=== PATIENT | male | born 1960 | race Hispanic/Latino ===

== ENCOUNTER 2020-04-30 16:34 | Inpatient (IN) | payer OTHER ==
[~2020-04-30] VITALS: Ht 180.3 cm; Wt 150.7 kg
[2020-04-30 17:16] LABS: APPEARANCE,URINE Clear (CLEAR); BILIRUBIN,URINE Negative (NEGATIVE); COLOR,URINE Yellow (YELLOW); GLUCOSE, URINE (UA) Negative (NEGATIVE); KETONES,URINE Negative (NEGATIVE); LEUKOCYTE ESTERASE ,URINE Trace (NEGATIVE); NITRATE,URINE Negative (NEGATIVE); OCCULT BLOOD,URINE Negative (NEGATIVE); PH,URINE 6.5 (5.0-8.0); PROTEIN,URINE POS 2+ mg/dL (NEGATIVE); UROBILINOGEN,URINE 0.2 mg/dL (0.2-1.0)
[2020-04-30 17:17] LABS: BASOPHILS % (AUTO) 0.6 % (0.0-5.0); EOSINOPHILS % (AUTO) 6.9 % (0.0-8.0); LYMPHOCYTES % (AUTO) 14.2 % (21.0-51.0); MEAN CORPUSCULAR HEMOGLOBIN 25.1 pg (27.0-33.0); MEAN CORPUSCULAR HGB CONC 31.4 g/dL (32.0-36.0); NEUTROPHILS % (AUTO) 69.3 % (40.0-77.0); PLATELET COUNT (AUTO) 336 K/uL (130-400); RED CELL DISTRIBUTION WIDTH 15.3 % (11.0-15.5); WHITE BLOOD COUNT (AUTO) 14.1 K/uL (4.8-10.8)
[2020-04-30 17:34] LABS: BACTERIA,URINE Few /HPF (None Seen); MUCUS,URINE Few LPF (None Seen); SQUAMOUS EPITHELIAL CELL,UR Few /HPF (0-2)
[2020-04-30 17:37] LABS: CREATININE 4.3 mg/dL (0.5-1.5); POTASSIUM 5.4 mmol/L (3.5-5.1)
[2020-04-30 17:38] LABS: INR 0.99 (0.85-1.15); PARTIAL THROMBOPLASTIN TIME 29.7 SEC (26.3-35.5); PROTHROMBIN TIME 10.7 SEC (9.6-11.6)
[2020-04-30 17:41] LABS: ALBUMIN 3.3 g/dL (3.5-5.0); BILIRUBIN,TOTAL 0.4 mg/dL (0.2-1.0); TOTAL PROTEIN, SERUM 8.3 g/dL (6.0-8.3)
[2020-04-30] MEDS ORDERED: ORPHENADRINE CITRATE 30 MG/ML ML ONE (18:02)
[2020-04-30] MEDS ORDERED: DEXAMETHASONE SOD PHOSPHATE 10MG/ML 1ML VIAL ONE (18:02)
[2020-04-30] MEDS ORDERED: GUAIFENESIN-DM 200/20 MG 10 ML PO PRN (19:45)
[2020-04-30] MEDS ORDERED: ZOLPIDEM TARTRATE 5 MG TAB PO PRN (19:45)
[2020-04-30] MEDS ORDERED: DiphenhydrAMINE HCL 50 MG/ML VIAL IV PRN (19:45)
[2020-04-30] MEDS ORDERED: MAG HYDROX/AL HYDROX/SIMETH 30 ML, LIDOCAINE HCL 2% VISCOUS 30 ML, DIPHENHYDRAMINE HCL ... PO PRN ×3 (19:45)
[2020-04-30] MEDS ORDERED: NITROGLYCERIN 0.4 MG SL TAB SL PRN (19:45)
[2020-04-30] MEDS ORDERED: ACETAMINOPHEN-CODEINE 300/30MG TAB PO PRN ×2 (19:45)
[2020-04-30] MEDS ORDERED: DIPHENHYDRAMINE HCL 25 MG CAPSULE PO PRN (19:45)
[2020-04-30] MEDS ORDERED: ONDANSETRON HCL 4 MG/2 ML VIAL IV PRN (19:45)
[2020-04-30] MEDS ORDERED: LACTULOSE 20 GM/30 ML UDCUP PO PRN (19:45)
[2020-04-30] MEDS ORDERED: BENZONATATE 100 MG CAPSULE PO PRN (19:45)
[2020-04-30] MEDS ORDERED: ACETAMINOPHEN 325 MG TAB PO PRN ×2 (19:45)
[2020-04-30] MEDS ORDERED: LIDOCAINE HCL 2% VISCOUS 30 ML, MAG HYDROX/AL HYDROX/SIMETH 30 ML, BELLADONNA-PHENOBARB... PO PRN ×3 (19:45)
[2020-04-30] MEDS ORDERED: MAG HYDROX/AL HYDROX/SIMETH ES 30 ML SUSP UDCUP PO PRN (19:45)
[2020-04-30] MEDS ORDERED: UNASYN 3GM+NS 100ML 3 GM/100 ML IV.KIT IV SCH (20:15)
[2020-04-30] MEDS ORDERED: OXYCODONE HCL 5 MG TAB PO PRN ×2 (20:30)
[2020-04-30] MEDS ORDERED: HEPARIN SODIUM 5000UNIT/ML 1ML VIAL ONE (20:30)
[2020-04-30] MEDS ORDERED: AMPICILLIN SODIUM/SULBACTAM NA 1.5GM VIAL ONE (20:34)
[2020-04-30] MEDS ORDERED: MAG HYDROX/AL HYDROX/SIMETH 60 ML, LIDOCAINE HCL 2% VISCOUS 60 ML, DIPHENHYDRAMINE HCL ... PO PRN ×3 (20:45)
[2020-04-30] MEDS ORDERED: COMPOUND PO MISCELLANEOUS 1 EACH MISC MISC PRN (21:00)
[2020-04-30] MEDS: UNASYN 3GM+NS 100ML 100 ML IV SCH (21:00)
[2020-04-30] MEDS: HEPARIN SODIUM 5000UNIT/ML 1ML VIAL SQ SCH (21:00)
[2020-04-30] MEDS: INSULIN LISPRO 100 UNIT/ML 3ML SQ SCH (21:00)
[2020-04-30 22:15] VITALS: BP 137/71
--- NOTE | 2020-04-30 22:30 | NUR ---
patient alert and oriented x 3. patient able to ambulate independently. i spoke to the patient about hemodialysis and his kidney failure and he claims that he will refuse dialysis even if he needs it to survive. patient on iv antibiotics and fluids. patient had a bowel movement this morning. i updated his home medications and pending reconciliation.
[2020-04-30] MEDS ORDERED: SIMV-43 PO (23:02)
[2020-04-30] MEDS ORDERED: SITA25TA5 PO (23:02)
[2020-04-30] MEDS ORDERED: FOLI1TAB85 PO (23:02)
[2020-04-30] MEDS ORDERED: LOSA100T58 PO (23:02)
[2020-04-30] MEDS ORDERED: DOXA8TAB81 PO (23:02)
[2020-04-30] MEDS ORDERED: TORS20TA4 PO (23:02)
[2020-04-30] MEDS ORDERED: INSU3INS5 SQ ×2 (23:02)
[2020-04-30] MEDS ORDERED: ASPI-1197 PO (23:02)
[2020-04-30] MEDS ORDERED: AMLO5TAB9 PO (23:02)
[2020-05-01 00:04] VITALS: BP 137/73
[2020-05-01] MEDS: UNASYN 3GM+NS 100ML 100 ML IV SCH ×4 (01:28→20:39)
[2020-05-01 03:45] LABS: BASOPHILS % (AUTO) 0.5 % (0.0-5.0); EOSINOPHILS % (AUTO) 7.5 % (0.0-8.0); HEMATOCRIT 35.6 % (42-54); LYMPHOCYTES % (AUTO) 15.1 % (21.0-51.0); MEAN CORPUSCULAR HEMOGLOBIN 25.3 pg (27.0-33.0); MEAN CORPUSCULAR HGB CONC 30.9 g/dL (32.0-36.0); MEAN CORPUSCULAR VOLUME 81.8 fL (79-99); MONOCYTES % (AUTO) 6.4 % (3.0-13.0); NEUTROPHILS % (AUTO) 69.1 % (40.0-77.0); PLATELET COUNT (AUTO) 302 K/uL (130-400); RED BLOOD CELL COUNT(AUTO) 4.35 MIL/uL (4.50-6.20); RED CELL DISTRIBUTION WIDTH 15.3 % (11.0-15.5); WHITE BLOOD COUNT (AUTO) 9.9 K/uL (4.8-10.8)
[2020-05-01 04:04] VITALS: BP 120/61
[2020-05-01 04:07] LABS: ALBUMIN 2.8 g/dL (3.5-5.0); BILIRUBIN,TOTAL 0.4 mg/dL (0.2-1.0); CREATININE 4.1 mg/dL (0.5-1.5); MAGNESIUM 2.3 mg/dL (1.80-2.40); PHOSPHORUS 4.8 mg/dL (2.5-4.9); POTASSIUM 5.9 mmol/L (3.5-5.1); TOTAL PROTEIN, SERUM 7.6 g/dL (6.0-8.3)
--- NOTE | 2020-05-01 05:40 | NUR ---
brian quiroz biometrician hospitalist for patient's potassium of 5.9. pending call back.
[2020-05-01] MEDS: INSULIN LISPRO 100 UNIT/ML 3ML SQ SCH ×4 (05:52→20:34)
--- NOTE | 2020-05-01 06:21 | NUR ---
texted doctor ever about patient's potassium of 5.9. pending reply.
[2020-05-01] MEDS: SODIUM CHLORIDE 0.9% 1000ML 1,000 ML IV SCH ×2 (06:39→08:00)
--- NOTE | 2020-05-01 06:43 | NUR ---
the ER nurse scanned and ran a bag of NS @150 ml when she transferred the patient to tx. I scanned and administered the second bag of Normal saline right now. after this bag, NS should be stopped as ordered by MD/
[2020-05-01] MEDS ORDERED: CALCIUM GLUCONATE 1 GM/10 ML VIAL IV SCH (07:15)
[2020-05-01] MEDS ORDERED: PHARMACY COMMUNICATION MISC SCH (07:15)
[2020-05-01] MEDS ORDERED: INSULIN HUMULIN R 100 UNIT/ML 3ML SQ SCH (07:15)
[2020-05-01] MEDS ORDERED: DEXTROSE 50%-WATER 50 ML DISP.SYRIN IV SCH (07:15)
[2020-05-01] MEDS ORDERED: SODIUM POLYSTYRENE SULFONATE 15 GM/60 ML ML RC SCH (07:15)
[2020-05-01] MEDS ORDERED: DEXTROSE 50%-WATER 50 ML DISP.SYRIN IV ONE (07:33)
[2020-05-01] MEDS ORDERED: SODIUM POLYSTYRENE SULFONATE 15 GM/60 ML ML ONE (07:33)
[2020-05-01] MEDS ORDERED: INSULIN HUMULIN R 100 UNIT/ML 3ML ONE (07:34)
--- NOTE | 2020-05-01 07:45 | NUR ---
GAVE 10 UNITS OF REGULAR INSULIN, GAVE 50 DEXTROSE AMPULE, GAVE 30 GRAMS OF KAYAXELATE (2 CUPS) WITH APPLE JUICE. PENDING TO GIVE CALCIUM GLUCONATE. PHARMACY MIXING IT.
[2020-05-01 08:00] VITALS: BP 158/81
[2020-05-01] MEDS ORDERED: CALCIUM GLUCONATE 1 GM in SODIUM CHLORIDE 0.9% 50 ML IV SCH ×2 (08:00→13:00)
[2020-05-01] MEDS ORDERED: GLUCAGON 1MG KIT 1 MG ML IM PRN (11:00)
[2020-05-01] MEDS ORDERED: DEXTROSE 50%-WATER 50 ML DISP.SYRIN IV PRN (11:00)
[2020-05-01] MEDS: FAMOTIDINE/PF 20 MG/2 ML VIAL IV SCH (11:27)
[2020-05-01] MEDS: ASPIRIN 81MG TAB.CHEW PO SCH (11:27)
[2020-05-01] MEDS: LINAGLIPTIN 5 MG TABLET PO SCH (11:28)
[2020-05-01] MEDS: AMLODIPINE BESYLATE 5 MG TAB PO SCH (11:28)
[2020-05-01] MEDS: HEPARIN SODIUM 5000UNIT/ML 1ML VIAL SQ SCH ×3 (11:39→20:42)
[2020-05-01 12:00] VITALS: BP 153/90
[2020-05-01 12:58] LABS: PROTEIN,URINE RANDOM 90.1 mg/dL (0-11.9)
[2020-05-01 13:14] LABS: CREATININE 3.9 mg/dL (0.5-1.5); POTASSIUM 5.1 mmol/L (3.5-5.1)
[2020-05-01 16:00] VITALS: BP 155/85
--- NOTE | 2020-05-01 16:35 | NUR ---
CM NOTE/IA UNSUCCESSFUL CALL ATTEMPTED AT 1427 AND 1635, NO ANSWER, PENDING IA. CM TO FOLLOW UP. Addendum: 05/02/20 at 1013 by ROSA PAN RN CM Amended: Links added.
[2020-05-01] MEDS: INSULIN HUMULIN 70/30 100 UNIT/ML 3ML SQ SCH (17:51)
[2020-05-01 20:08] VITALS: BP 142/66
[2020-05-01] MEDS: SIMVASTATIN 20 MG TABLET PO SCH (20:39)
[2020-05-01] MEDS: DOXAZOSIN MESYLATE 2 MG TABLET PO SCH (20:39)
[2020-05-02 00:12] VITALS: BP 144/71
[2020-05-02] MEDS: UNASYN 3GM+NS 100ML 100 ML IV SCH ×4 (03:17→21:01)
[2020-05-02 04:12] VITALS: BP 138/74
[2020-05-02 05:20] LABS: BASOPHILS % (AUTO) 0.7 % (0.0-5.0); EOSINOPHILS % (AUTO) 7.6 % (0.0-8.0); HEMATOCRIT 32.8 % (42-54); LYMPHOCYTES % (AUTO) 11.8 % (21.0-51.0); MEAN CORPUSCULAR HEMOGLOBIN 25.4 pg (27.0-33.0); MEAN CORPUSCULAR HGB CONC 31.1 g/dL (32.0-36.0); MEAN CORPUSCULAR VOLUME 81.8 fL (79-99); MONOCYTES % (AUTO) 6.7 % (3.0-13.0); NEUTROPHILS % (AUTO) 72.4 % (40.0-77.0); PLATELET COUNT (AUTO) 288 K/uL (130-400); RED BLOOD CELL COUNT(AUTO) 4.01 MIL/uL (4.50-6.20); RED CELL DISTRIBUTION WIDTH 15.4 % (11.0-15.5); WHITE BLOOD COUNT (AUTO) 10.3 K/uL (4.8-10.8)
[2020-05-02 05:47] LABS: ALBUMIN 2.7 g/dL (3.5-5.0); BILIRUBIN,TOTAL 0.3 mg/dL (0.2-1.0); CREATININE 3.8 mg/dL (0.5-1.5); PHOSPHORUS 4.6 mg/dL (2.5-4.9); POTASSIUM 5.2 mmol/L (3.5-5.1)
[2020-05-02] MEDS: INSULIN LISPRO 100 UNIT/ML 3ML SQ SCH ×4 (05:54→20:47)
[2020-05-02] MEDS: INSULIN HUMULIN 70/30 100 UNIT/ML 3ML SQ SCH ×2 (05:55→17:29)
[2020-05-02 08:13] VITALS: BP 136/78
[2020-05-02] MEDS: LINAGLIPTIN 5 MG TABLET PO SCH (08:50)
[2020-05-02] MEDS: FOLIC ACID/VITAMIN B COMP W-C 1 CAP TAB PO SCH (08:50)
[2020-05-02] MEDS: ASPIRIN 81MG TAB.CHEW PO SCH (08:50)
[2020-05-02] MEDS: FAMOTIDINE/PF 20 MG/2 ML VIAL IV SCH (08:51)
[2020-05-02] MEDS: AMLODIPINE BESYLATE 5 MG TAB PO SCH (09:01)
[2020-05-02] MEDS: HEPARIN SODIUM 5000UNIT/ML 1ML VIAL SQ SCH ×3 (09:01→20:32)
[2020-05-02 10:20] LABS: APPEARANCE,URINE Clear (CLEAR); BILIRUBIN,URINE Negative (NEGATIVE); COLOR,URINE Yellow (YELLOW); GLUCOSE, URINE (UA) Negative (NEGATIVE); KETONES,URINE Negative (NEGATIVE); LEUKOCYTE ESTERASE ,URINE Negative (NEGATIVE); NITRATE,URINE Negative (NEGATIVE); OCCULT BLOOD,URINE Negative (NEGATIVE); PH,URINE 6.5 (5.0-8.0); PROTEIN,URINE POS 2+ mg/dL (NEGATIVE); UROBILINOGEN,URINE 0.2 mg/dL (0.2-1.0)
[2020-05-02 10:37] LABS: BACTERIA,URINE Rare /HPF (None Seen); RBC,URINE 0-1 /HPF (0-1); SQUAMOUS EPITHELIAL CELL,UR Rare /HPF (0-2); WBC,URINE 0-1 /HPF (0-1)
[2020-05-02 12:00] VITALS: BP 164/85
[2020-05-02 16:00] VITALS: BP 166/85
[2020-05-02] MEDS ORDERED: SODIUM POLYSTYRENE SULFONATE 15 GM/60 ML ML PO SCH (16:15)
--- NOTE | 2020-05-02 16:15 | NUR ---
CM NOTE/IA UNSUCCESSFUL ATTEMPTED TO CALL, NO ANSWER, CM TO FOLLOW UP. Addendum: 05/02/20 at 1616 by ROSA PAN RN CM Amended: Links added.
[2020-05-02 20:00] VITALS: BP 119/68
[2020-05-02] MEDS: SIMVASTATIN 20 MG TABLET PO SCH (21:02)
[2020-05-02] MEDS: DOXAZOSIN MESYLATE 2 MG TABLET PO SCH (21:02)
[2020-05-03] VITALS (7 sets, daily range): BP systolic 133–160; BP diastolic 63–90
[2020-05-03] MEDS: UNASYN 3GM+NS 100ML 100 ML IV SCH ×4 (02:51→20:54)
[2020-05-03 06:44] LABS: BASOPHILS % (AUTO) 0.5 % (0.0-5.0); EOSINOPHILS % (AUTO) 6.1 % (0.0-8.0); HEMATOCRIT 32.1 % (42-54); LYMPHOCYTES % (AUTO) 11.3 % (21.0-51.0); MEAN CORPUSCULAR HEMOGLOBIN 25.5 pg (27.0-33.0); MEAN CORPUSCULAR HGB CONC 31.2 g/dL (32.0-36.0); MEAN CORPUSCULAR VOLUME 81.9 fL (79-99); MONOCYTES % (AUTO) 7.5 % (3.0-13.0); NEUTROPHILS % (AUTO) 74.1 % (40.0-77.0); PLATELET COUNT (AUTO) 246 K/uL (130-400); RED BLOOD CELL COUNT(AUTO) 3.92 MIL/uL (4.50-6.20); RED CELL DISTRIBUTION WIDTH 15.2 % (11.0-15.5); WHITE BLOOD COUNT (AUTO) 11.2 K/uL (4.8-10.8)
[2020-05-03 06:58] LABS: ALBUMIN 2.7 g/dL (3.5-5.0); BILIRUBIN,TOTAL 0.5 mg/dL (0.2-1.0); CREATININE 3.8 mg/dL (0.5-1.5); MAGNESIUM 2.1 mg/dL (1.80-2.40); PHOSPHORUS 4.3 mg/dL (2.5-4.9); POTASSIUM 4.9 mmol/L (3.5-5.1)
[2020-05-03] MEDS: INSULIN LISPRO 100 UNIT/ML 3ML SQ SCH ×4 (07:09→20:57)
[2020-05-03] MEDS: INSULIN HUMULIN 70/30 100 UNIT/ML 3ML SQ SCH ×2 (07:30→16:38)
[2020-05-03] MEDS: LINAGLIPTIN 5 MG TABLET PO SCH (08:08)
[2020-05-03] MEDS: ASPIRIN 81MG TAB.CHEW PO SCH (08:08)
[2020-05-03] MEDS: FAMOTIDINE/PF 20 MG/2 ML VIAL IV SCH (08:08)
[2020-05-03] MEDS: FOLIC ACID/VITAMIN B COMP W-C 1 CAP TAB PO SCH (08:09)
[2020-05-03] MEDS: AMLODIPINE BESYLATE 5 MG TAB PO SCH (08:09)
[2020-05-03] MEDS: HYDROMORPHONE HCL 2 MG TAB PO PRN ×3 (08:09→21:13)
[2020-05-03] MEDS: HEPARIN SODIUM 5000UNIT/ML 1ML VIAL SQ SCH ×3 (08:12→20:58)
[2020-05-03 08:46] LABS: HEMOGLOBIN A1C 7.6 % (4.0-6.0)
[2020-05-03] MEDS: PREDNISONE 20 MG TABLET PO SCH (13:14)
[2020-05-03] MEDS ORDERED: COLCHICINE 0.6 MG TABLET PO SCH (14:00)
--- NOTE | 2020-05-03 19:48 | NUR ---
INITIAL SW spoke with patient. He states he lives with his , Sheyla Recinos. No home services. DME: glucometer (uses insulin). Independent with ADL's and drives. Patient works concrete handler. PCP is Dr. Lora Levine. Pharmacy is [facility] located in [place]. DCP is home. Addendum: 05/03/20 at 1949 by AJ JETER SS Amended: Links added.
[2020-05-03] MEDS: DOXAZOSIN MESYLATE 2 MG TABLET PO SCH (20:52)
[2020-05-03] MEDS: SIMVASTATIN 20 MG TABLET PO SCH (20:52)
--- NOTE | 2020-05-03 20:55 | NUR ---
MEDS SHIFT ASSESSMENT DONE, PLEASE REFER TO CHART. PT COMPLAINTS OF ARTHRITIC PAINS. DUE MEDS ADMINISTERED, DILAUDID PO GIVEN FOR PAINS. KEPT RESTED AND COMFORTABLE IN BED. WILL RE-ASSESS PT. CALL LIGHT WITHIN REACH. Addendum: 05/03/20 at 2311 by JOSE D GONZALES RN RN Amended: Links added.
--- NOTE | 2020-05-04 01:56 | NUR ---
ROUNDS PT RESTING WELL, NO DISTRESS NOTED. KEPT COMFORTABLE IN BED. CALL LIGHT WITHIN REACH. WILL MONITOR PT.
[2020-05-04] MEDS: UNASYN 3GM+NS 100ML 100 ML IV SCH ×4 (03:03→20:18)
[2020-05-04 03:51] VITALS: BP 143/72
--- NOTE | 2020-05-04 05:41 | NUR ---
ROUNDS PT RESTING WELL, NO DISTRESS NOTED. NO CONCERNS VERBALIZED. FOR MORE CARE.
[2020-05-04] MEDS: INSULIN LISPRO 100 UNIT/ML 3ML SQ SCH ×4 (06:15→20:19)
[2020-05-04] MEDS: INSULIN HUMULIN 70/30 100 UNIT/ML 3ML SQ SCH ×2 (06:55→17:08)
[2020-05-04 08:10] VITALS: BP 147/72
[2020-05-04] MEDS: FAMOTIDINE/PF 20 MG/2 ML VIAL IV SCH (09:00)
[2020-05-04] MEDS: LINAGLIPTIN 5 MG TABLET PO SCH (09:00)
[2020-05-04] MEDS: AMLODIPINE BESYLATE 5 MG TAB PO SCH (09:00)
[2020-05-04] MEDS: FOLIC ACID/VITAMIN B COMP W-C 1 CAP TAB PO SCH (09:00)
[2020-05-04] MEDS: ASPIRIN 81MG TAB.CHEW PO SCH (09:01)
[2020-05-04] MEDS: HEPARIN SODIUM 5000UNIT/ML 1ML VIAL SQ SCH ×3 (09:05→20:20)
[2020-05-04 11:47] VITALS: BP 106/76
[2020-05-04] MEDS ORDERED: PREDNISONE 20 MG TABLET PO SCH (12:45)
[2020-05-04] MEDS: PREDNISONE 20 MG TABLET PO SCH (12:59)
[2020-05-04 16:56] VITALS: BP 160/81
[2020-05-04 20:00] VITALS: BP 162/80
[2020-05-04] MEDS: SIMVASTATIN 20 MG TABLET PO SCH (20:18)
[2020-05-04] MEDS: DOXAZOSIN MESYLATE 2 MG TABLET PO SCH (20:18)
--- NOTE | 2020-05-04 20:20 | NUR ---
MEDS SHIFT ASSESSMENT DONE, PLEASE REFER TO CHART. DUE MEDS ADMINISTERED, PT TOLERATED WELL. KEPT RESTED AND COMFORTABLE. CALL LIGHT WITHIN REACH. WILL MONITOR PT. Addendum: 05/05/20 at 0320 by JOSE D GONZALES RN RN Amended: Links added.
[2020-05-05] VITALS: BP 163/88
--- NOTE | 2020-05-05 00:15 | NUR ---
PAGED PT'S BP IS PERSISTENTLY HIGH BUT IS ASYMPTOMATIC. KADEEM CASTILLO NP [employer]PITAL[employer], VIA ANSWERING SERVICE. AWAITING CALL BACK.
[2020-05-05] MEDS ORDERED: HYDRALAZINE HCL 20 MG/ML VIAL IV PRN (00:45)
--- NOTE | 2020-05-05 00:45 | NUR ---
WYATT CASTILLO NP, ON THE FLOOR AND REFERRED PT'S HIGH BP. NEW MED ORDER GIVEN, PLEASE REFER TO CPOE. WILL MEDICATE PT.
[2020-05-05] MEDS ORDERED: HYDRALAZINE HCL 20 MG/ML VIAL ONE (01:14)
[2020-05-05] MEDS: UNASYN 3GM+NS 100ML 100 ML IV SCH ×4 (03:01→21:23)
[2020-05-05 03:43] VITALS: BP 137/67
--- NOTE | 2020-05-05 05:51 | NUR ---
ROUNDS PT ALREADY AWAKE. DENIES ANY CONCERNS AT THIS TIME. NO DISTRESS NOTED. KEPT COMFORTABLE. FOR MORE CARE.
[2020-05-05] MEDS: INSULIN LISPRO 100 UNIT/ML 3ML SQ SCH ×3 (05:52→20:16)
[2020-05-05 06:26] LABS: BASOPHILS % (AUTO) 0.3 % (0.0-5.0); EOSINOPHILS % (AUTO) 0.1 % (0.0-8.0); HEMATOCRIT 31.6 % (42-54); LYMPHOCYTES % (AUTO) 7.2 % (21.0-51.0); MEAN CORPUSCULAR HEMOGLOBIN 25.4 pg (27.0-33.0); MEAN CORPUSCULAR HGB CONC 31.6 g/dL (32.0-36.0); MEAN CORPUSCULAR VOLUME 80.2 fL (79-99); MONOCYTES % (AUTO) 7.3 % (3.0-13.0); NEUTROPHILS % (AUTO) 84.4 % (40.0-77.0); PLATELET COUNT (AUTO) 231 K/uL (130-400); RED BLOOD CELL COUNT(AUTO) 3.94 MIL/uL (4.50-6.20); WHITE BLOOD COUNT (AUTO) 12.3 K/uL (4.8-10.8)
[2020-05-05 06:34] LABS: POTASSIUM 5.4 mmol/L (3.5-5.1)
[2020-05-05] MEDS: INSULIN HUMULIN 70/30 100 UNIT/ML 3ML SQ SCH ×2 (06:50→08:50)
[2020-05-05 08:00] VITALS: BP 169/88
[2020-05-05] MEDS ORDERED: SODIUM POLYSTYRENE SULFONATE 15 GM/60 ML ML PO SCH (08:30)
[2020-05-05] MEDS ORDERED: CALCIUM GLUCONATE 1 GM/10 ML VIAL IV SCH (08:30)
[2020-05-05] MEDS ORDERED: CALCIUM GLUCONATE 1 GM in SODIUM CHLORIDE 0.9% 100 ML IV SCH (08:45)
[2020-05-05] MEDS: HEPARIN SODIUM 5000UNIT/ML 1ML VIAL SQ SCH ×3 (08:49→21:25)
[2020-05-05] MEDS: LOSARTAN 100 MG TABLET PO SCH (08:50)
[2020-05-05] MEDS: LINAGLIPTIN 5 MG TABLET PO SCH (08:50)
[2020-05-05] MEDS: FAMOTIDINE/PF 20 MG/2 ML VIAL IV SCH (08:51)
[2020-05-05] MEDS: ASPIRIN 81MG TAB.CHEW PO SCH (08:51)
[2020-05-05] MEDS: FOLIC ACID/VITAMIN B COMP W-C 1 CAP TAB PO SCH (08:51)
[2020-05-05] MEDS: AMLODIPINE BESYLATE 5 MG TAB PO SCH (09:08)
[2020-05-05 09:17] LABS: MEAN CORPUSCULAR HEMOGLOBIN 25.6 pg (27.0-33.0); MEAN CORPUSCULAR HGB CONC 31.9 g/dL (32.0-36.0); MEAN CORPUSCULAR VOLUME 80.2 fL (79-99); RED BLOOD CELL COUNT(AUTO) 3.99 MIL/uL (4.50-6.20); WHITE BLOOD COUNT (AUTO) 12.7 K/uL (4.8-10.8)
[2020-05-05 09:31] LABS: POTASSIUM 4.4 mmol/L (3.5-5.1)
[2020-05-05] MEDS ORDERED: PREDNISONE 20 MG TABLET PO SCH (10:15)
[2020-05-05 11:00] VITALS: BP 148/73
[2020-05-05] MEDS: PREDNISONE 20 MG TABLET PO SCH (15:44)
[2020-05-05 16:00] VITALS: BP 152/80
[2020-05-05 20:24] VITALS: BP 173/92
[2020-05-05] MEDS: SIMVASTATIN 20 MG TABLET PO SCH (21:24)
[2020-05-05] MEDS: DOXAZOSIN MESYLATE 2 MG TABLET PO SCH (21:24)
[2020-05-06 00:01] VITALS: BP 156/85
[2020-05-06] MEDS: UNASYN 3GM+NS 100ML 100 ML IV SCH ×2 (03:50→12:49)
[2020-05-06 04:11] VITALS: BP 153/79
[2020-05-06 04:42] LABS: HEMATOCRIT 31.6 % (42-54); MEAN CORPUSCULAR HEMOGLOBIN 25.4 pg (27.0-33.0); MEAN CORPUSCULAR VOLUME 79.6 fL (79-99); RED BLOOD CELL COUNT(AUTO) 3.97 MIL/uL (4.50-6.20); RED CELL DISTRIBUTION WIDTH 15.1 % (11.0-15.5); WHITE BLOOD COUNT (AUTO) 8.9 K/uL (4.8-10.8)
[2020-05-06 04:50] LABS: CREATININE 3.7 mg/dL (0.5-1.5); POTASSIUM 4.4 mmol/L (3.5-5.1)
[2020-05-06] MEDS: INSULIN LISPRO 100 UNIT/ML 3ML SQ SCH ×2 (06:47→11:30)
[2020-05-06 08:00] VITALS: BP 138/83
--- NOTE | 2020-05-06 08:00 | NUR ---
AM SHIFT ASSESSMENT.VOICES NO C/O
[2020-05-06] MEDS ORDERED: LINA5TAB PO (08:45)
[2020-05-06] MEDS ORDERED: INSU3INS5 SQ ×2 (08:45)
[2020-05-06 12:00] VITALS: BP 151/79
[2020-05-06] MEDS: FOLIC ACID/VITAMIN B COMP W-C 1 CAP TAB PO SCH (12:46)
[2020-05-06] MEDS: LOSARTAN 100 MG TABLET PO SCH (12:46)
[2020-05-06] MEDS: LINAGLIPTIN 5 MG TABLET PO SCH (12:47)
[2020-05-06] MEDS: ASPIRIN 81MG TAB.CHEW PO SCH (12:49)
[2020-05-06] MEDS: FAMOTIDINE/PF 20 MG/2 ML VIAL IV SCH (12:49)
[2020-05-06] MEDS: HEPARIN SODIUM 5000UNIT/ML 1ML VIAL SQ SCH (13:09)
--- NOTE | 2020-05-06 18:45 | NUR ---
DISCHARGED NOW USING TEACH BACK SALINE LOCK AND HEART MONITOR REMOVED. VERBALIZED UNDERSTANDING OF ALL INST. GIVEN.INSULIN DOSES CHANGED AND STATES HE UNDERSTANDS. WILL FOLLOW UP WITH PRIMARY CARE DR. ALSO WITH DR. DE LA FUENTE.
== END 2020-05-06 18:45 | disposition home or self-care (01) | DRG 690 ==
LOC: EDH 16:34 → EDHIP 19:43 → 3DH 22:04
PROVIDERS: ADMIT Internal Medicine; ATTEND Internal Medicine
DX: N30.90 Cystitis, unspecified without hematuria (principal); N17.9 Acute kidney failure, unspecified; N18.9 Chronic kidney disease, unspecified; K42.9 Umbilical hernia without obstruction or gangrene; D64.9 Anemia, unspecified; E11.22 Type 2 diabetes mellitus with diabetic chronic kidney disease; E11.42 Type 2 diabetes mellitus with diabetic polyneuropathy; E11.51 Type 2 diabetes mellitus with diabetic peripheral angiopathy without gangrene; E87.5 Hyperkalemia; I12.9 Hypertensive chronic kidney disease with stage 1 through stage 4 chronic kidney disease, or unspecified chronic kidney disease; M10.9 Gout, unspecified; Z03.818 Encounter for observation for suspected exposure to other biological agents ruled out
CPT/HCPCS: 36415; 71045; 76770; 80048; 80053; 81001; 82550; 82570; 82948; 83036; 83605; 83735; 84100; 84132; 84156; 84484; 84550; 85025; 85027; 85610; 85730; 87040; 87088; 87426; 93005; 93306; 93356; 97039; 99291; G0378; J0295; J0360; J0610; J1100; J1644; J1815; J3490; J7030; J7070; U0003

== ENCOUNTER 2020-06-14 22:33 | Emergency (ER) | payer OTHER ==
[~2020-06-14 22:33] MED LIST: AMLO-257 PO; ASPI-1197 PO; DOXA8TAB81 PO; FOLI1TAB85 PO; INSU3INS5 SQ; LINA5TAB PO; LOSA100T58 PO; SIMV-43 PO; TORS20TA4 PO
[2020-06-14 23:40] LABS: BASOPHILS % (AUTO) 0.3 % (0.0-5.0); EOSINOPHILS % (AUTO) 1.8 % (0.0-8.0); HEMATOCRIT 33.8 % (42-54); LYMPHOCYTES % (AUTO) 4.9 % (21.0-51.0); MEAN CORPUSCULAR HEMOGLOBIN 26.1 pg (27.0-33.0); MEAN CORPUSCULAR HGB CONC 31.4 g/dL (32.0-36.0); MEAN CORPUSCULAR VOLUME 83.3 fL (79-99); MONOCYTES % (AUTO) 5.8 % (3.0-13.0); NEUTROPHILS % (AUTO) 86.7 % (40.0-77.0); PLATELET COUNT (AUTO) 180 K/uL (130-400); RED BLOOD CELL COUNT(AUTO) 4.06 MIL/uL (4.50-6.20); RED CELL DISTRIBUTION WIDTH 16.1 % (11.0-15.5); WHITE BLOOD COUNT (AUTO) 15.3 K/uL (4.8-10.8)
[2020-06-14 23:51] LABS: CREATININE 4.2 mg/dL (0.5-1.5); POTASSIUM 4.8 mmol/L (3.5-5.1)
[2020-06-15] MEDS ORDERED: ONDANSETRON HCL 4 MG/2 ML VIAL ONE (00:05)
[2020-06-15] MEDS ORDERED: COLCHICINE 0.6 MG TABLET ONE (00:06)
[2020-06-15] MEDS ORDERED: MORPHINE SULFATE 4 MG/1ML SYG ONE (00:06)
[2020-06-15] MEDS ORDERED: PREDNISONE 20 MG TABLET ONE (00:27)
== END 2020-06-15 00:43 | disposition home or self-care (01) ==
LOC: EDH 22:33
DX: M10.9 Gout, unspecified (principal); I12.9 Hypertensive chronic kidney disease with stage 1 through stage 4 chronic kidney disease, or unspecified chronic kidney disease; E11.22 Type 2 diabetes mellitus with diabetic chronic kidney disease; N18.9 Chronic kidney disease, unspecified; Z91.018 Allergy to other foods; Z88.6 Allergy status to analgesic agent; Z79.899 Other long term (current) drug therapy
CPT/HCPCS: 36415; 80048; 85025; 96374; 96375; 99284; J2270; J2405

== ENCOUNTER 2021-06-19 10:48 | Inpatient (IN) | payer OTHER ==
[~2021-06-19] VITALS: Ht 180.3 cm; Wt 145.2 kg
[2021-06-19 11:38] LABS: ABG BASE EXCESS -2.3 mmol/L (-2.0-3.0); ABG OXYGEN SATURATION 86.6 % (95.0-99.0); ABG PCO2 59 mmHg (35-48)
[2021-06-19 11:43] LABS: CREATININE 4.5 mg/dL (0.5-1.5); POTASSIUM 5.5 mmol/L (3.5-5.1)
[2021-06-19 11:45] LABS: BASOPHILS % (AUTO) 0.5 % (0.0-5.0); EOSINOPHILS % (AUTO) 7.3 % (0.0-8.0); LYMPHOCYTES % (AUTO) 9.5 % (21.0-51.0); MEAN CORPUSCULAR HEMOGLOBIN 26.2 pg (27.0-33.0); MEAN CORPUSCULAR VOLUME 87.4 fL (79-99); MONOCYTES % (AUTO) 5.7 % (3.0-13.0); NEUTROPHILS % (AUTO) 76.7 % (40.0-77.0); PLATELET COUNT (AUTO) 211 K/uL (130-400); RED BLOOD CELL COUNT(AUTO) 4.12 MIL/uL (4.50-6.20); RED CELL DISTRIBUTION WIDTH 15.1 % (11.0-15.5); WHITE BLOOD COUNT (AUTO) 10.3 K/uL (4.8-10.8)
[2021-06-19 11:48] LABS: ALBUMIN 3.1 g/dL (3.5-5.0); BILIRUBIN,TOTAL 0.5 mg/dL (0.2-1.0); TOTAL PROTEIN, SERUM 7.4 g/dL (6.0-8.3)
[2021-06-19 12:17] LABS: B-TYPE NATRIURETIC PEPTIDE 210 pg/mL (0-100)
[2021-06-19] MEDS ORDERED: BUMETANIDE IV SCH (15:00)
[2021-06-19] MEDS ORDERED: VANCOMYCIN PROTOCOL PER PHARMACY IV PRN (15:00)
[2021-06-19 15:58] LABS: RETICULOCYTE % (AUTO) 2.27 % (0.42-2.23)
[2021-06-19] MEDS ORDERED: VANCOMYCIN 2GM/500ML NS IV ONE ×2 (16:00)
[2021-06-19] MEDS: CEFEPIME HCL 1 GM VIAL IVP SCH (16:15)
[2021-06-19 16:19] LABS: % IRON SATURATION 9.1 % (30-44)
[2021-06-19 16:38] LABS: THYROID STIMULATING HORMONE 2.44 uIU/mL (0.36-3.74)
[2021-06-19 16:53] VITALS: BP 116/60
[2021-06-19] MEDS ORDERED: ALLO100T PO (17:59)
[2021-06-19] MEDS ORDERED: OMEP20TA25 PO (17:59)
[2021-06-19] MEDS ORDERED: GABA-529 PO (17:59)
[2021-06-19] MEDS ORDERED: METO200T49 PO (17:59)
[2021-06-19] MEDS: SODIUM CHLORIDE 3% FOR INHALATION 4 ML/AMP VIAL.NEB IH SCH ×2 (18:59→23:17)
[2021-06-19 19:42] VITALS: BP 149/79
[2021-06-19] MEDS: FAMOTIDINE 20MG VIAL IV SCH (21:45)
[2021-06-19 23:58] VITALS: BP 143/75
[2021-06-20] MEDS ORDERED: FUROSEMIDE 100MG VIAL ONE (02:37)
[2021-06-20 04:20] VITALS: BP 134/71
[2021-06-20 05:20] LABS: BASOPHILS % (AUTO) 0.6 % (0.0-5.0); HEMATOCRIT 37.7 % (42-54); LYMPHOCYTES % (AUTO) 8.2 % (21.0-51.0); MEAN CORPUSCULAR HGB CONC 29.2 g/dL (32.0-36.0); MEAN CORPUSCULAR VOLUME 89.1 fL (79-99); MONOCYTES % (AUTO) 5.7 % (3.0-13.0); NEUTROPHILS % (AUTO) 78.1 % (40.0-77.0); PLATELET COUNT (AUTO) 201 K/uL (130-400); RED BLOOD CELL COUNT(AUTO) 4.23 MIL/uL (4.50-6.20); RED CELL DISTRIBUTION WIDTH 15.2 % (11.0-15.5); WHITE BLOOD COUNT (AUTO) 10.2 K/uL (4.8-10.8)
[2021-06-20 05:42] LABS: CREATININE 4.2 mg/dL (0.5-1.5); MAGNESIUM 2.6 mg/dL (1.80-2.40); PHOSPHORUS 5.7 mg/dL (2.5-4.9); POTASSIUM 5.5 mmol/L (3.5-5.1); URIC ACID 10.3 mg/dL (2.6-7.2)
[2021-06-20] MEDS: SODIUM CHLORIDE 3% FOR INHALATION 4 ML/AMP VIAL.NEB IH SCH ×4 (06:14→23:47)
[2021-06-20 08:00] VITALS: BP 151/79
[2021-06-20] MEDS: Vitamin B Complex/Vit C/Folic Acid PO SCH (08:54)
[2021-06-20] MEDS: ENOXAPARIN SODIUM 30 MG/0.3 ML SQ SCH (08:54)
[2021-06-20 11:51] VITALS: BP 138/66
[2021-06-20] MEDS: FUROSEMIDE 100MG VIAL 100 MG in 0.9%NACL 100ML 100 ML IV SCH ×2 (13:03→21:51)
[2021-06-20] MEDS: CEFEPIME HCL 1 GM VIAL IVP SCH (15:47)
[2021-06-20 16:00] VITALS: BP 142/49
[2021-06-20] MEDS: FAMOTIDINE 20MG VIAL IV SCH (19:19)
[2021-06-20 19:42] VITALS: BP 168/81
[2021-06-20] MEDS ORDERED: DEXTROSE 50%-WATER 50 ML DISP.SYRIN IV PRN (22:00)
[2021-06-20] MEDS ORDERED: GLUCAGON 1MG KIT 1 MG ML IM PRN (22:00)
[2021-06-20] MEDS: INSULIN HUMULIN R 100 UNIT/ML 3ML SQ SCH (22:08)
[2021-06-20 23:55] VITALS: BP 155/76
[2021-06-21 03:29] VITALS: BP 165/93
[2021-06-21] MEDS: INSULIN HUMULIN R 100 UNIT/ML 3ML SQ SCH ×4 (05:30→21:17)
[2021-06-21 05:54] LABS: BASOPHILS % (AUTO) 0.5 % (0.0-5.0); EOSINOPHILS % (AUTO) 7.4 % (0.0-8.0); LYMPHOCYTES % (AUTO) 12.7 % (21.0-51.0); MEAN CORPUSCULAR HEMOGLOBIN 25.5 pg (27.0-33.0); MEAN CORPUSCULAR HGB CONC 29.4 g/dL (32.0-36.0); MEAN CORPUSCULAR VOLUME 86.6 fL (79-99); MONOCYTES % (AUTO) 7.7 % (3.0-13.0); NEUTROPHILS % (AUTO) 71.3 % (40.0-77.0); PLATELET COUNT (AUTO) 180 K/uL (130-400); RED BLOOD CELL COUNT(AUTO) 4.04 MIL/uL (4.50-6.20); RED CELL DISTRIBUTION WIDTH 14.7 % (11.0-15.5); WHITE BLOOD COUNT (AUTO) 9.3 K/uL (4.8-10.8)
[2021-06-21 06:26] LABS: BILIRUBIN,DIRECT 0.2 mg/dL (0.0-0.3); BILIRUBIN,TOTAL 0.6 mg/dL (0.2-1.0); CREATININE 4.3 mg/dL (0.5-1.5); POTASSIUM 4.4 mmol/L (3.5-5.1); TOTAL PROTEIN, SERUM 6.9 g/dL (6.0-8.3)
[2021-06-21] MEDS: SODIUM CHLORIDE 3% FOR INHALATION 4 ML/AMP VIAL.NEB IH SCH ×4 (07:00→23:21)
[2021-06-21 08:00] VITALS: BP 154/75
[2021-06-21] MEDS ORDERED: VANCOMYCIN KIT 1 GM/250 ML IV.KIT IV SCH (09:00)
[2021-06-21] MEDS: Vitamin B Complex/Vit C/Folic Acid PO SCH (09:19)
[2021-06-21] MEDS: 0.9% NACL 250ML 250 ML IV SCH (09:20)
[2021-06-21] MEDS: ENOXAPARIN SODIUM 30 MG/0.3 ML SQ SCH (09:20)
[2021-06-21] MEDS: FUROSEMIDE 100MG VIAL 100 MG in 0.9%NACL 100ML 100 ML IV SCH (10:57)
[2021-06-21 11:46] VITALS: BP 147/78
[2021-06-21] MEDS: CEFEPIME HCL 1 GM VIAL IVP SCH (14:35)
[2021-06-21] MEDS ORDERED: COMPOUND IV MISC 1 EACH IVSOLN MISC PRN (15:00)
[2021-06-21 16:00] VITALS: BP 172/84
[2021-06-21] MEDS: IRON SUCROSE COMPLEX 100 MG in 0.9%NACL 50ML 50 ML IV SCH (16:40)
[2021-06-21 19:35] VITALS: BP 148/74
[2021-06-21] MEDS: FAMOTIDINE 20MG VIAL IV SCH (21:14)
[2021-06-22] VITALS (7 sets, daily range): BP systolic 124–165; BP diastolic 67–83
[2021-06-22] MEDS ORDERED: FUROSEMIDE 100MG VIAL ONE (01:46)
[2021-06-22] MEDS ORDERED: 0.9%NACL 100ML 100 ML ONE (01:49)
[2021-06-22 04:54] LABS: HEMATOCRIT 36.2 % (42-54); MEAN CORPUSCULAR HEMOGLOBIN 25.8 pg (27.0-33.0); MEAN CORPUSCULAR HGB CONC 29.8 g/dL (32.0-36.0); MEAN CORPUSCULAR VOLUME 86.4 fL (79-99); PLATELET COUNT (AUTO) 194 K/uL (130-400); RED BLOOD CELL COUNT(AUTO) 4.19 MIL/uL (4.50-6.20); RED CELL DISTRIBUTION WIDTH 14.6 % (11.0-15.5); WHITE BLOOD COUNT (AUTO) 9.6 K/uL (4.8-10.8)
[2021-06-22 05:10] LABS: CREATININE 4.3 mg/dL (0.5-1.5)
[2021-06-22 05:44] LABS: BASOPHILS % (MANUAL) 1 % (0-2); EOSINOPHILS % (MANUAL) 9 % (1-6); LYMPHOCYTES % (MANUAL) 6 % (22-44); MAN.DIFF COMMENT-IMPRESSION MANUAL DIFFERENTIAL; MONOCYTES % (MANUAL) 10 % (2-9); SEGMENTED NEUTROPHILS % 74 % (40-70)
[2021-06-22 05:45] LABS: PLATELET MORPHOLOGY COMMENT ADEQUATE
[2021-06-22] MEDS: INSULIN HUMULIN R 100 UNIT/ML 3ML SQ SCH ×4 (05:48→22:01)
[2021-06-22] MEDS: SODIUM CHLORIDE 3% FOR INHALATION 4 ML/AMP VIAL.NEB IH SCH (06:36)
[2021-06-22] MEDS ORDERED: CEFEPIME HCL 1 GM VIAL IVP SCH (09:00)
[2021-06-22] MEDS: Vitamin B Complex/Vit C/Folic Acid PO SCH (09:21)
[2021-06-22] MEDS: IRON SUCROSE COMPLEX 100 MG in 0.9%NACL 50ML 50 ML IV SCH (09:22)
[2021-06-22] MEDS: ENOXAPARIN SODIUM 30 MG/0.3 ML SQ SCH (09:23)
[2021-06-22] MEDS ORDERED: COLCHICINE 0.6 MG TABLET PO SCH (15:00)
[2021-06-22] MEDS ORDERED: AMLODIPINE 5 MG TAB PO ONE (15:00)
[2021-06-22] MEDS: FUROSEMIDE 100MG VIAL 100 MG in 0.9%NACL 100ML 100 ML IV SCH (16:05)
[2021-06-22] MEDS: FAMOTIDINE 20MG VIAL IV SCH (21:52)
[2021-06-23] MEDS ORDERED: FUROSEMIDE 100MG VIAL ONE (02:07)
[2021-06-23 03:40] VITALS: BP 136/70
[2021-06-23 04:00] LABS: HEMATOCRIT 37.4 % (42-54); MEAN CORPUSCULAR HEMOGLOBIN 25.8 pg (27.0-33.0); MEAN CORPUSCULAR VOLUME 83.1 fL (79-99); RED BLOOD CELL COUNT(AUTO) 4.5 MIL/uL (4.50-6.20); RED CELL DISTRIBUTION WIDTH 14.6 % (11.0-15.5); WHITE BLOOD COUNT (AUTO) 11.7 K/uL (4.8-10.8)
[2021-06-23 04:08] LABS: CREATININE 4.4 mg/dL (0.5-1.5); POTASSIUM 3.8 mmol/L (3.5-5.1); URIC ACID 11.7 mg/dL (2.6-7.2)
[2021-06-23] MEDS: INSULIN HUMULIN R 100 UNIT/ML 3ML SQ SCH ×3 (06:30→17:03)
[2021-06-23 08:01] VITALS: BP 146/79
[2021-06-23] MEDS: 0.9% NACL 250ML 250 ML IV SCH (09:00)
[2021-06-23] MEDS ORDERED: COLCHICINE 0.6 MG TABLET PO SCH (09:00)
[2021-06-23] MEDS ORDERED: AMLODIPINE 5 MG TAB PO SCH (09:00)
[2021-06-23] MEDS ORDERED: INSU3INS3 SQ (09:09)
[2021-06-23] MEDS ORDERED: TORS20TA4 PO (09:09)
[2021-06-23] MEDS ORDERED: METO-409 PO (09:09)
[2021-06-23] MEDS ORDERED: AMLO5TAB4 PO (09:09)
[2021-06-23] MEDS: ENOXAPARIN SODIUM 30 MG/0.3 ML SQ SCH (09:16)
[2021-06-23] MEDS: Vitamin B Complex/Vit C/Folic Acid PO SCH (09:16)
[2021-06-23 11:21] VITALS: BP 150/73
[2021-06-23 15:41] VITALS: BP 138/72
[2021-06-24] MEDS ORDERED: INSULIN GLARGINE 100 UNITS/ML 10 ML VIAL SQ SCH (08:00)
[2021-06-24] MEDS ORDERED: LINAGLIPTIN 5 MG TABLET PO SCH (09:00)
[2021-06-24] MEDS ORDERED: METOPROLOL SUCCINATE 50 MG TAB.SR.24H PO SCH (09:00)
== END 2021-06-23 18:48 | disposition home or self-care (01) | DRG 291 ==
LOC: EDH 10:48 → EDHIP 14:49 → 4BH 17:02
PROVIDERS: ADMIT Internal Medicine; ATTEND Internal Medicine
DX: I13.2 Hypertensive heart and chronic kidney disease with heart failure and with stage 5 chronic kidney disease, or end stage renal disease (principal); I50.31 Acute diastolic (congestive) heart failure; J96.01 Acute respiratory failure with hypoxia; N18.5 Chronic kidney disease, stage 5; N17.9 Acute kidney failure, unspecified; Z68.41 Body mass index [BMI] 40.0-44.9, adult; E87.70 Fluid overload, unspecified; E11.22 Type 2 diabetes mellitus with diabetic chronic kidney disease; Z20.822 Contact with and (suspected) exposure to COVID-19; M19.90 Unspecified osteoarthritis, unspecified site; E78.5 Hyperlipidemia, unspecified; E11.51 Type 2 diabetes mellitus with diabetic peripheral angiopathy without gangrene; E87.5 Hyperkalemia; E11.649 Type 2 diabetes mellitus with hypoglycemia without coma; E66.9 Obesity, unspecified; M10.9 Gout, unspecified; D50.9 Iron deficiency anemia, unspecified; Z79.4 Long term (current) use of insulin; Z88.8 Allergy status to other drugs, medicaments and biological substances; Z91.19 Patient's noncompliance with other medical treatment and regimen; Z83.3 Family history of diabetes mellitus; Z82.0 Family history of epilepsy and other diseases of the nervous system; Z82.49 Family history of ischemic heart disease and other diseases of the circulatory system
CPT/HCPCS: 36415; 36600; 71045; 80048; 80053; 80076; 80202; 82270; 82607; 82746; 82803; 82948; 83540; 83550; 83735; 83880; 84100; 84145; 84443; 84484; 84550; 85025; 85027; 85045; 85651; 86140; 87040; 87071; 87205; 87635; 87804; 93005; 94640; 94664; 94760; A4606; C9803; G0378; J0692; J1650; J1756; J1815; J1940; J3370; J3490; J7040; J7050

== ENCOUNTER 2021-08-27 09:45 | Inpatient (IN) | payer OTHER ==
[~2021-08-27] VITALS: Ht 182.9 cm; Wt 137.4 kg
[~2021-08-27 09:45] MED LIST changes: +ALLO100T PO; -AMLO-257 PO; +AMLO5TAB4 PO; -ASPI-1197 PO; -DOXA8TAB81 PO; +GABA-529 PO; +INSU3INS3 SQ; -INSU3INS5 SQ; -LOSA100T58 PO; +METO-409 PO
[2021-08-27 10:08] LABS: ABG BASE EXCESS -3.6 mmol/L (-2.0-3.0); ABG HCO3 23.3 mmol/L (21.0-28.0); ABG OXYGEN SATURATION 78.3 % (95.0-99.0); ABG PCO2 49 mmHg (35-48)
[2021-08-27 10:26] LABS: BASOPHILS % (AUTO) 0.2 % (0.0-5.0); EOSINOPHILS % (AUTO) 2.9 % (0.0-8.0); HEMATOCRIT 37.2 % (42-54); LYMPHOCYTES % (AUTO) 9.1 % (21.0-51.0); MEAN CORPUSCULAR HEMOGLOBIN 26.1 pg (27.0-33.0); MEAN CORPUSCULAR HGB CONC 30.9 g/dL (32.0-36.0); MEAN CORPUSCULAR VOLUME 84.5 fL (79-99); MONOCYTES % (AUTO) 12.5 % (3.0-13.0); NEUTROPHILS % (AUTO) 74.3 % (40.0-77.0); PLATELET COUNT (AUTO) 124 K/uL (130-400); RED CELL DISTRIBUTION WIDTH 16.3 % (11.0-15.5); WHITE BLOOD COUNT (AUTO) 8.4 K/uL (4.8-10.8)
[2021-08-27] MEDS ORDERED: FUROSEMIDE 40MG VIAL IV SCH ×2 (10:30→21:00)
[2021-08-27 10:32] LABS: CREATININE 4.9 mg/dL (0.5-1.5); POTASSIUM 4.4 mmol/L (3.5-5.1)
[2021-08-27 10:42] LABS: ALBUMIN 3.5 g/dL (3.5-5.0); BILIRUBIN,TOTAL 0.9 mg/dL (0.2-1.0); TOTAL PROTEIN, SERUM 8.1 g/dL (6.0-8.3)
[2021-08-27 10:48] LABS: B-TYPE NATRIURETIC PEPTIDE 601 pg/mL (0-100)
[2021-08-27] MEDS ORDERED: AZITHROMYCIN 250 MG TABLET PO SCH (11:00)
[2021-08-27] MEDS ORDERED: CEFTRIAXONE 1G VIAL IVP SCH (11:00)
[2021-08-27] MEDS: CEFTRIAXONE 1G VIAL IVP SCH (13:00)
[2021-08-27] MEDS: 0.9% NACL 250ML IVPB SCH (13:00)
[2021-08-27] MEDS ORDERED: ACETAMINOPHEN 325 MG TAB PO PRN (13:00)
[2021-08-27] MEDS ORDERED: ONDANSETRON 4MG INJ IVP PRN (13:00)
[2021-08-27] MEDS: AZITHROMYCIN 500MG VIAL IVPB SCH (13:00)
[2021-08-27] MEDS ORDERED: FUROSEMIDE 40MG VIAL ONE (14:35)
[2021-08-27] MEDS ORDERED: FUROSEMIDE 40MG VIAL IV ONE (15:00)
[2021-08-27 16:07] LABS: APPEARANCE,URINE Cloudy (CLEAR); BILIRUBIN,URINE Negative (NEGATIVE); COLOR,URINE Yellow (YELLOW); GLUCOSE, URINE (UA) TRACE mg/dL (NEGATIVE); KETONES,URINE Negative (NEGATIVE); LEUKOCYTE ESTERASE ,URINE Negative (NEGATIVE); NITRATE,URINE Negative (NEGATIVE); OCCULT BLOOD,URINE Small (NEGATIVE); PROTEIN,URINE POS 2+ mg/dL (NEGATIVE); UROBILINOGEN,URINE 0.2 mg/dL (0.2-1.0)
[2021-08-27 16:18] LABS: WBC,URINE 0-1 /HPF (0-1)
[2021-08-27 16:19] LABS: BACTERIA,URINE Few /HPF (None Seen); SQUAMOUS EPITHELIAL CELL,UR Few /HPF (0-2)
[2021-08-27 16:21] LABS: YEAST,URINE BUDDING Rare /HPF (None Seen)
[2021-08-27 16:22] LABS: AMORPHOUS SEDIMENT,UR Rare /LPF (None Seen)
[2021-08-27] MEDS: FAMOTIDINE 20MG TAB PO SCH (21:30)
[2021-08-27] MEDS: HEPARIN 5,000 UNIT VIAL SQ SCH (21:30)
[2021-08-28 04:21] LABS: ABG BASE EXCESS -3.2 mmol/L (-2.0-3.0); ABG HCO3 24.8 mmol/L (21.0-28.0); ABG OXYGEN SATURATION 93.3 % (95.0-99.0); ABG PCO2 58 mmHg (35-48)
[2021-08-28 04:56] LABS: BASOPHILS % (AUTO) 0.3 % (0.0-5.0); EOSINOPHILS % (AUTO) 0.6 % (0.0-8.0); HEMATOCRIT 34.6 % (42-54); LYMPHOCYTES % (AUTO) 6.9 % (21.0-51.0); MEAN CORPUSCULAR HGB CONC 30.6 g/dL (32.0-36.0); MONOCYTES % (AUTO) 10.9 % (3.0-13.0); NEUTROPHILS % (AUTO) 80.5 % (40.0-77.0); PLATELET COUNT (AUTO) 120 K/uL (130-400); RED BLOOD CELL COUNT(AUTO) 4.07 MIL/uL (4.50-6.20); RED CELL DISTRIBUTION WIDTH 15.9 % (11.0-15.5)
[2021-08-28 05:06] LABS: INR 1.09 (0.85-1.15); PROTHROMBIN TIME 11.8 SEC (9.6-11.6)
[2021-08-28 05:07] LABS: PARTIAL THROMBOPLASTIN TIME 35.1 SEC (26.3-35.5)
[2021-08-28 05:10] LABS: HEMOGLOBIN A1C 8.4 % (4.0-6.0)
[2021-08-28 05:13] LABS: ALBUMIN 2.8 g/dL (3.5-5.0); BILIRUBIN,TOTAL 0.7 mg/dL (0.2-1.0); MAGNESIUM 2.5 mg/dL (1.80-2.40); PHOSPHORUS 6.4 mg/dL (2.5-4.9); POTASSIUM 4.6 mmol/L (3.5-5.1); TOTAL PROTEIN, SERUM 7.1 g/dL (6.0-8.3)
[2021-08-28 05:23] LABS: B-TYPE NATRIURETIC PEPTIDE 317 pg/mL (0-100)
[2021-08-28 06:25] VITALS: BP 144/66
[2021-08-28 09:41] VITALS: BP 161/78
[2021-08-28] MEDS: FUROSEMIDE 40MG VIAL IV SCH ×2 (10:22→21:30)
[2021-08-28] MEDS: HEPARIN 5,000 UNIT VIAL SQ SCH ×2 (10:23→21:32)
[2021-08-28 12:41] VITALS: BP 155/93
[2021-08-28] MEDS: 0.9% NACL 250ML IVPB SCH (13:51)
[2021-08-28] MEDS: CEFTRIAXONE 1G VIAL IVP SCH (13:51)
[2021-08-28] MEDS ORDERED: AZITHROMYCIN 500MG+NS 250ML 250 ML IV ONE (14:05)
[2021-08-28] MEDS: AZITHROMYCIN 500MG VIAL IVPB SCH (14:06)
[2021-08-28] MEDS: AZITHROMYCIN 500MG+NS 250ML 250 ML IV SCH (14:11)
[2021-08-28] MEDS ORDERED: METOLAZONE 2.5 MG TABLET PO SCH (16:30)
[2021-08-28 16:46] VITALS: BP 142/81
[2021-08-28 20:00] VITALS: BP 154/73
[2021-08-28] MEDS: FAMOTIDINE 20MG TAB PO SCH ×2 (21:00→21:30)
[2021-08-28] MEDS: INSULIN HUMULIN R 100 UNIT/ML 3ML SQ SCH (21:33)
[2021-08-29] VITALS (7 sets, daily range): BP systolic 128–170; BP diastolic 73–91
[2021-08-29 05:07] LABS: BASOPHILS % (AUTO) 0.3 % (0.0-5.0); EOSINOPHILS % (AUTO) 0.8 % (0.0-8.0); HEMATOCRIT 32.8 % (42-54); MEAN CORPUSCULAR HEMOGLOBIN 25.9 pg (27.0-33.0); MEAN CORPUSCULAR HGB CONC 31.7 g/dL (32.0-36.0); MEAN CORPUSCULAR VOLUME 81.8 fL (79-99); MONOCYTES % (AUTO) 9.7 % (3.0-13.0); NEUTROPHILS % (AUTO) 80.4 % (40.0-77.0); PLATELET COUNT (AUTO) 139 K/uL (130-400); RED BLOOD CELL COUNT(AUTO) 4.01 MIL/uL (4.50-6.20); WHITE BLOOD COUNT (AUTO) 10.6 K/uL (4.8-10.8)
[2021-08-29 05:20] LABS: CREATININE 5.1 mg/dL (0.5-1.5); POTASSIUM 3.9 mmol/L (3.5-5.1)
[2021-08-29] MEDS: INSULIN HUMULIN R 100 UNIT/ML 3ML SQ SCH ×4 (05:31→20:30)
[2021-08-29 05:38] LABS: B-TYPE NATRIURETIC PEPTIDE 67 pg/mL (0-100)
[2021-08-29] MEDS: AZITHROMYCIN 500MG+NS 250ML 250 ML IV SCH (09:28)
[2021-08-29] MEDS: FUROSEMIDE 40MG VIAL IV SCH ×2 (09:28→20:18)
[2021-08-29] MEDS: HEPARIN 5,000 UNIT VIAL SQ SCH ×2 (09:29→20:17)
[2021-08-29] MEDS ORDERED: CEFDINIR 250MG/5ML 60ML BOTTLE PO SCH (10:30)
[2021-08-29] MEDS: AZITHROMYCIN 250 MG TABLET PO SCH (10:30)
[2021-08-29] MEDS ORDERED: ALBUTEROL 0.042% 1.25MG/3ML IH PRN (10:30)
[2021-08-29] MEDS ORDERED: tumeric PO (12:28)
[2021-08-29] MEDS ORDERED: SIMV40TA59 PO (12:28)
[2021-08-29] MEDS ORDERED: ALLO100T PO (12:28)
[2021-08-29] MEDS ORDERED: TORS20TA4 PO (12:28)
[2021-08-29] MEDS ORDERED: GABA-529 PO (12:28)
[2021-08-29] MEDS ORDERED: FOLI1TAB85 PO (12:28)
[2021-08-29] MEDS ORDERED: METO-409 PO (12:28)
[2021-08-29] MEDS ORDERED: AMLO10TA4 PO (12:28)
[2021-08-29] MEDS ORDERED: LINA5TAB PO (12:28)
[2021-08-29] MEDS ORDERED: HYDROMORPHONE 0.5 MG SYG (0.5MG/0.5ML) ONE (12:39)
[2021-08-29] MEDS: 0.9% NACL 250ML IVPB SCH (12:48)
[2021-08-29] MEDS ORDERED: HYDROMORPHONE 0.5 MG SYG (0.5MG/0.5ML) IVP PRN (13:00)
[2021-08-29] MEDS: CEFUROXIME AXETIL 250 MG TABLET PO SCH (13:36)
[2021-08-29] MEDS ORDERED: HYDROMORPHONE 0.5 MG SYG (0.5MG/0.5ML) IVP ONE (14:00)
[2021-08-29] MEDS ORDERED: METOLAZONE 2.5 MG TABLET PO SCH (14:30)
[2021-08-29] MEDS: ALBUTEROL 0.042% 1.25MG/3ML IH SCH (18:16)
[2021-08-29] MEDS: BUDESONIDE 0.5 MG/2 ML INH IH SCH (18:23)
[2021-08-29] MEDS: FAMOTIDINE 20MG TAB PO SCH (20:16)
[2021-08-29] MEDS: SIMVASTATIN 20 MG TABLET PO SCH (20:16)
[2021-08-30] MEDS: CEFUROXIME AXETIL 250 MG TABLET PO SCH ×2 (00:47→11:40)
[2021-08-30 04:00] VITALS: BP 141/72
[2021-08-30 04:58] LABS: HEMATOCRIT 33.4 % (42-54); MEAN CORPUSCULAR HEMOGLOBIN 25.8 pg (27.0-33.0); MEAN CORPUSCULAR VOLUME 80.5 fL (79-99); RED BLOOD CELL COUNT(AUTO) 4.15 MIL/uL (4.50-6.20); RED CELL DISTRIBUTION WIDTH 15.9 % (11.0-15.5); WHITE BLOOD COUNT (AUTO) 9.5 K/uL (4.8-10.8)
[2021-08-30 05:19] LABS: ALBUMIN 2.7 g/dL (3.5-5.0); BILIRUBIN,TOTAL 0.7 mg/dL (0.2-1.0); CREATININE 5.1 mg/dL (0.5-1.5); POTASSIUM 3.3 mmol/L (3.5-5.1); TOTAL PROTEIN, SERUM 7.6 g/dL (6.0-8.3)
[2021-08-30] MEDS: INSULIN HUMULIN R 100 UNIT/ML 3ML SQ SCH ×4 (06:11→20:04)
[2021-08-30] MEDS: ALBUTEROL 0.042% 1.25MG/3ML IH SCH ×2 (06:25→18:11)
[2021-08-30] MEDS: BUDESONIDE 0.5 MG/2 ML INH IH SCH ×2 (06:25→18:11)
[2021-08-30] MEDS ORDERED: METOPROLOL SUCCINATE 50 MG TAB.SR.24H PO SCH (09:00)
[2021-08-30] MEDS ORDERED: PREDNISONE 20 MG TABLET PO SCH (09:00)
[2021-08-30] MEDS: ALLOPURINOL 100 MG TABLET PO SCH ×2 (09:00→09:07)
[2021-08-30] MEDS ORDERED: GABAPENTIN 100 MG CAPSULE PO SCH (09:00)
[2021-08-30] MEDS: FUROSEMIDE 40MG VIAL IV SCH ×2 (09:00→09:08)
[2021-08-30] MEDS ORDERED: AMLODIPINE 5 MG TAB PO SCH (09:00)
[2021-08-30] MEDS: HEPARIN 5,000 UNIT VIAL SQ SCH ×2 (09:08→20:40)
[2021-08-30] MEDS: AZITHROMYCIN 250 MG TABLET PO SCH (09:10)
[2021-08-30 09:18] VITALS: BP 146/86
[2021-08-30 11:49] VITALS: BP 138/73
[2021-08-30] MEDS: 0.9% NACL 250ML IVPB SCH (13:00)
[2021-08-30] MEDS ORDERED: Cefuroxime Axetil PO (13:21)
[2021-08-30] MEDS ORDERED: FUROSEMIDE 40MG VIAL IV ONE (16:30)
[2021-08-30 16:42] VITALS: BP 129/76
[2021-08-30 20:00] VITALS: BP 131/98
[2021-08-30] MEDS: SIMVASTATIN 20 MG TABLET PO SCH (20:40)
[2021-08-30] MEDS: FAMOTIDINE 20MG TAB PO SCH (20:40)
[2021-08-30] MEDS ORDERED: FUROSEMIDE 40MG VIAL IV SCH (21:00)
== END 2021-08-30 21:55 | disposition left against medical advice (07) | DRG 193 ==
LOC: EDH 09:45 → EDHIP 12:06 → 4BH 08-28 06:11
PROVIDERS: ADMIT Hospitalist; ATTEND Hospitalist
PROC: 5A09357 Assistance with Respiratory Ventilation, Less than 24 Consecutive Hours, Continuous Positive Airway Pressure (ICD-10-PCS; principal; 2021-08-27)
PROC: 5A09357 Assistance with Respiratory Ventilation, Less than 24 Consecutive Hours, Continuous Positive Airway Pressure (ICD-10-PCS; 2021-08-28)
DX: J18.9 Pneumonia, unspecified organism (principal); J96.01 Acute respiratory failure with hypoxia; I50.33 Acute on chronic diastolic (congestive) heart failure; J96.02 Acute respiratory failure with hypercapnia; Z68.41 Body mass index [BMI] 40.0-44.9, adult; N17.9 Acute kidney failure, unspecified; N18.4 Chronic kidney disease, stage 4 (severe); I13.0 Hypertensive heart and chronic kidney disease with heart failure and stage 1 through stage 4 chronic kidney disease, or unspecified chronic kidney disease; E66.01 Morbid (severe) obesity due to excess calories; E11.65 Type 2 diabetes mellitus with hyperglycemia; E11.22 Type 2 diabetes mellitus with diabetic chronic kidney disease; E78.5 Hyperlipidemia, unspecified; G47.33 Obstructive sleep apnea (adult) (pediatric); Z20.822 Contact with and (suspected) exposure to COVID-19; N40.0 Benign prostatic hyperplasia without lower urinary tract symptoms; Z96.653 Presence of artificial knee joint, bilateral; Z79.4 Long term (current) use of insulin; Z79.899 Other long term (current) drug therapy; Z90.49 Acquired absence of other specified parts of digestive tract; Z88.8 Allergy status to other drugs, medicaments and biological substances; Z91.19 Patient's noncompliance with other medical treatment and regimen; Z83.3 Family history of diabetes mellitus; Z82.0 Family history of epilepsy and other diseases of the nervous system; Z82.49 Family history of ischemic heart disease and other diseases of the circulatory system
CPT/HCPCS: 36415; 36600; 71045; 71250; 80048; 80053; 80061; 81001; 82435; 82550; 82803; 82947; 82948; 83036; 83605; 83735; 83874; 83880; 84100; 84132; 84145; 84295; 84484; 85018; 85025; 85027; 85610; 85730; 87040; 87635; 87804; 87880; 93005; 94640; 94660; 94664; 94760; 99291; C9803; G0378; J0456; J0696; J1170; J1644; J1815; J1940; J7050

== ENCOUNTER → 2023-05-31 | Outpatient (CLI) | payer OTHER ==
[~2023-05-31] MED LIST changes: -ALLO100T PO; +CALC667C10 PO; +FERR325T29 PO; -FOLI1TAB85 PO; +INSU100V37 SQ; -INSU3INS3 SQ; +INSU3INS5 SQ; -LINA5TAB PO; -METO-409 PO; +SEMA1PEN3 SQ; +SEVE800T7 PO; +TAMS-1 PO; -TORS20TA4 PO
== END | disposition home or self-care (01) ==
LOC: RAH 10:00
PROVIDERS: ATTEND Internal Medicine Gastroenterology
DX: Z90.49 Acquired absence of other specified parts of digestive tract (principal); Z76.82 Awaiting organ transplant status
CPT/HCPCS: 74176

== ENCOUNTER 2023-06-07 06:30 | Day surgery (SDC) | payer OTHER ==
[2023-05-26 12:40] VITALS: BP 125/62; PULSE 78; RESP 17
[~2023-06-07] VITALS: Ht 180.3 cm; Wt 123.3 kg
[2023-06-07] VITALS (9 sets, daily range): BP systolic 108–145; BP diastolic 50–61; PULSE 64–83; RESP 15–18
[2023-06-07] MEDS ORDERED: 0.9%NACL 1000ML 1,000 ML IV ONE (06:59)
[2023-06-07] MEDS ORDERED: PROPOFOL 10 MG/ML 20ML VIAL IV ONE ×2 (08:08→08:35)
== END 2023-06-07 09:45 | disposition home or self-care (01) ==
LOC: ENDO 06:30 → DAH 06:30 → ENDO 09:45
PROVIDERS: ATTEND Internal Medicine Gastroenterology
DX: Z12.11 Encounter for screening for malignant neoplasm of colon (principal); R12 Heartburn; D12.2 Benign neoplasm of ascending colon; D12.3 Benign neoplasm of transverse colon; D12.0 Benign neoplasm of cecum; D12.4 Benign neoplasm of descending colon; K57.30 Diverticulosis of large intestine without perforation or abscess without bleeding; K64.0 First degree hemorrhoids; D64.9 Anemia, unspecified; E11.22 Type 2 diabetes mellitus with diabetic chronic kidney disease; I12.0 Hypertensive chronic kidney disease with stage 5 chronic kidney disease or end stage renal disease; N18.6 End stage renal disease; E66.9 Obesity, unspecified; K76.0 Fatty (change of) liver, not elsewhere classified; M10.9 Gout, unspecified; Z86.010 Personal history of colon polyps; Z79.899 Other long term (current) drug therapy; M19.90 Unspecified osteoarthritis, unspecified site; Z99.2 Dependence on renal dialysis; Z90.49 Acquired absence of other specified parts of digestive tract; Z98.890 Other specified postprocedural states; Z82.49 Family history of ischemic heart disease and other diseases of the circulatory system; Z83.3 Family history of diabetes mellitus; Z76.82 Awaiting organ transplant status; Z79.4 Long term (current) use of insulin; Z68.36 Body mass index [BMI] 36.0-36.9, adult
CPT/HCPCS: 82948 ×2; 43239; 45380; 45385; J7030 ×2; J2704 ×2; A4620; A4215 ×2; A4223; A7002; A4222; A4221; A4663; A4216; A4606; J3490

== ENCOUNTER → 2023-11-17 | Outpatient (CLI) | payer MEDICARE ==
[~2023-11-17] MED LIST changes: +ALLO100T PO; +CINA30TA5 PO; +NIFE-40 PO
[2023-11-17 16:50] LABS: CREATININE 4.8 mg/dL (0.5-1.5); POTASSIUM 3.9 mmol/L (3.5-5.1)
== END | disposition home or self-care (01) ==
LOC: LAB 15:15
PROVIDERS: ATTEND Student in an Organized Health Care Education/Training Program
DX: I10 Essential (primary) hypertension (principal); R07.89 Other chest pain
CPT/HCPCS: 36415; 80048

== ENCOUNTER → 2023-11-22 | Outpatient (CLI) | payer MEDICARE ==
[~2023-11-22] MED LIST changes: -ALLO100T PO; -CINA30TA5 PO; +IOHEXOL 350 MG/ML 100ML INFUS..BTL IV ONE; +METOPROLOL TARTRATE 1 MG/ML 5ML VIAL IV ONE; -NIFE-40 PO; +SEVE800T50 PO; -SEVE800T7 PO
== END | disposition home or self-care (01) ==
LOC: RAH 09:33
PROVIDERS: ATTEND Student in an Organized Health Care Education/Training Program
DX: R07.89 Other chest pain (principal); R07.9 Chest pain, unspecified
CPT/HCPCS: 75574; J3490; Q9967

== ENCOUNTER 2024-01-03 05:55 | Day surgery (SDC) | payer MEDICARE ==
[2023-12-30 10:19] LABS: BASOPHILS # (AUTO) 0.05 K/uL (0.00-0.20); BASOPHILS % (AUTO) 0.5 % (0.0-5.0); EOSINOPHILS # (AUTO) 0.89 K/uL (0.00-0.70); IMMATURE GRANULOCYTE ABSOLUTE 0.04 K/uL (0-1); LYMPHOCYTES # (AUTO) 1.6 K/uL (1.0-4.8); LYMPHOCYTES % (AUTO) 16.1 % (21.0-51.0); MEAN CORPUSCULAR HEMOGLOBIN 29.1 pg (27.0-33.0); MEAN CORPUSCULAR HGB CONC 32.6 g/dL (32.0-36.0); MEAN CORPUSCULAR VOLUME 89.2 fL (79-99); MONOCYTES # (AUTO) 0.7 K/uL (0.1-1.0); NEUTROPHILS # (AUTO) 6.6 K/uL (1.8-7.7); PLATELET COUNT (AUTO) 190 K/uL (130-400); RED BLOOD CELL COUNT(AUTO) 4.26 MIL/uL (4.50-6.20); RED CELL DISTRIBUTION WIDTH 13.1 % (11.0-15.5); WHITE BLOOD COUNT (AUTO) 9.9 K/uL (4.8-10.8)
[2023-12-30 10:22] VITALS: BP 128/68; PULSE 83; RESP 18
[2023-12-30 10:26] LABS: CREATININE 6.2 mg/dL (0.5-1.3); POTASSIUM 3.9 mmol/L (3.5-5.1)
[2023-12-30 10:28] LABS: INR <= 0.93 (0.85-1.15); PROTHROMBIN TIME 10.5 SEC (9.6-11.6)
[2023-12-30 10:30] LABS: PARTIAL THROMBOPLASTIN TIME 30.7 SEC (26.3-35.5)
[2024-01-03] VITALS (9 sets, daily range): BP systolic 120–151; BP diastolic 60–83; PULSE 57–69; RESP 14–18
[~2024-01-03] VITALS: Ht 180.3 cm; Wt 125.2 kg
[~2024-01-03 05:55] MED LIST changes: +ALLO100T PO; -AMLO5TAB4 PO; -CALC667C10 PO; +CINA30TA5 PO; -IOHEXOL 350 MG/ML 100ML INFUS..BTL IV ONE; -METOPROLOL TARTRATE 1 MG/ML 5ML VIAL IV ONE; +NIFE-40 PO; -SEVE800T50 PO; +SEVE800T7 PO
[2024-01-03] MEDS ORDERED: 0.9%NACL 1000ML 1,000 ML IV ONE (06:04)
[2024-01-03] MEDS ORDERED: FENTANYL CITRATE PF 50 MCG/1 ML 2ML VIAL ONE (07:26)
[2024-01-03] MEDS ORDERED: LIDOCAINE HCL 400MG/20ML VIAL ONE (07:26)
[2024-01-03] MEDS ORDERED: MIDAZOLAM HCL 1 MG/ML 2ML VIAL ONE (07:26)
[2024-01-03] MEDS ORDERED: VERAPAMIL HCL 2.5 MG/ML VIAL ONE (07:27)
[2024-01-03] MEDS ORDERED: NITROGLYCERIN 50MG VIAL ONE (07:27)
[2024-01-03] MEDS ORDERED: HEPARIN 10,000 UNIT/10ML (1,000 UNIT/ML) VIAL ONE (07:27)
[2024-01-03] MEDS ORDERED: IOHEXOL 350 MG/ML 100ML INFUS..BTL IV ONE (07:27)
[2024-01-03] MEDS ORDERED: DEXTROSE 50%-WATER 50 ML DISP.SYRIN IV PRN (08:30)
[2024-01-03] MEDS ORDERED: GLUCAGON 1MG KIT 1 MG ML IM PRN (08:30)
== END 2024-01-03 11:15 | disposition home or self-care (01) ==
LOC: DAH 05:55
PROVIDERS: ATTEND Student in an Organized Health Care Education/Training Program
DX: R93.1 Abnormal findings on diagnostic imaging of heart and coronary circulation (principal); I25.10 Atherosclerotic heart disease of native coronary artery without angina pectoris; I12.9 Hypertensive chronic kidney disease with stage 1 through stage 4 chronic kidney disease, or unspecified chronic kidney disease; E11.22 Type 2 diabetes mellitus with diabetic chronic kidney disease; N18.9 Chronic kidney disease, unspecified; R94.31 Abnormal electrocardiogram [ECG] [EKG]; E78.2 Mixed hyperlipidemia; R07.89 Other chest pain; Z88.8 Allergy status to other drugs, medicaments and biological substances; Z79.4 Long term (current) use of insulin; Z79.84 Long term (current) use of oral hypoglycemic drugs; Z79.899 Other long term (current) drug therapy; Z83.3 Family history of diabetes mellitus; Z82.49 Family history of ischemic heart disease and other diseases of the circulatory system; Z83.79 Family history of other diseases of the digestive system; Z90.49 Acquired absence of other specified parts of digestive tract; Z98.890 Other specified postprocedural states
CPT/HCPCS: 80048; 85025; 85610; 85730; 36415; 71045; 93005; 93458; 82948 ×2; C1769 ×2; C1894; A4649; Q9965; J3010; J3490 ×3; J7030; J1644 ×2; J2250; Q9967; A4215; A4222; A4221; A4663; A4216; A4606; A4223 ×3; 99156; 99157